=== PATIENT | female | born 1930 | race Caucasian/White ===

== ENCOUNTER → 2017-02-04 | Outpatient (CLI) | payer OTHER ==
[~2017-02-04] VITALS: Ht 152.4 cm; Wt 65.2 kg
[~2017-02-04] MED LIST: ADVAIR 250/501 DISK IH; ADVAIR HFA120 INHALA IH; ALBUTEROL2.5 MG/3 M IH; ASPIR 8181 M1 PO; ASPIR-LOW81 MG PO; ASPIRIN E.C.81 M2 PO; ASPIRIN81 M1; AUGMENTIN875 MG PO; Ambien PO; Aspirin E.C. PO; BLOOD PRESSURE MED; CALCITRATE + D1 EACH PO; CALCIUM CARB1 TABLET PO; CALCIUM CITRAT1 EAC8 PO; CALCIUM CITRAT250 MG PO; CALICUM 500+D1 EACH PO; CALTRATE 6001 TABLET PO; CALTRATE PLUS1 EACH PO; CARDIZEM CD,CA180 MG PO; CARDIZEM CD,CA240 MG PO; CARTIA XT240 MG PO; CATAPRES0.1 MG PO; CEFTIN500 MG PO; CELEBREX200 MG; CENTRUM SILVER1 EAC3 PO; CENTRUM SILVER1 EAC4 PO; CENTRUM SILVER1 EACH PO; CHOLESTYRAMINE P4 GM PO; CICLODAN90 GM TP; CIPRO500 MG PO; CITRACAL + D C1 EACH; CITRACAL200 MG PO; COUMADIN,JANTOVE2 MG PO; COUMADIN,JANTOVE5 MG PO; COUMADIN2 MG PO; COUMADIN3 M1 PO; COUMADIN3 MG PO; COUMADIN4 MG PO; COUMADIN5 MG PO; CULTURELLE CAP1 EACH PO; CYANOCOBALAM1000 MCG PO; CYMBALTA30 MG PO; CYMBALTA60 MG PO; Cardizem CD,Cartia X PO; Coumadin Daily Dose PO; Cymbalta PO; DESYREL100 MG PO; DICYCLOMINE HCL20 MG PO; DIGOX125 MCG PO; DIGOXIN125 MCG PO; DILACOR XR240 MG PO; DILAUDID2 MG PO; DILTIAZEM 24HR240 MG PO; DIOVAN HCT 1601 EAC1 PO; DIOVAN HCT 81 TABLET PO; DUONEB 2.5-0.5 M3 ML IPPB; DURAGESIC1 EAC2 TD; DURAGESIC100 MCG TD; DURAGESIC100 MICROG TD; DURAGESIC50 MCG TD; Duragesic TD; ELIQUIS5 MG PO; FENTANYL1 EAC3 PO; FERROUS SULFAT325 MG PO; FLAGYL500 MG PO; FLEXERIL10 MG PO; FLORASTOR250 MG PO; GABAPENTIN300 MG PO; HEMMOREX-HC25 MG PR; HYDROMORPHONE HC2 MG PO; IRON325 M1 PO; K-DUR20 MEQ PO; K-Dur PO; KLOR-CON 1010 ME1 PO; KLOR-CON M2020 MEQ PO; LANOXIN,DIGI0.125 MG PO; LANOXIN,DIGIT0.25 MG PO; LANOXIN125 MCG PO; LANSOPRAZOLE30 MG PO; LASIX20 MG PO; LASIX40 MG PO; LEVSIN0.125 MG PO; LOPERAMIDE2 MG PO; LORAZEPAM0.5 MG PO; LOSARTAN-HCTZ1 EAC1; LOSARTAN-HCTZ1 EAC1 PO; LOW DOSE ASPIRI81 M2 PO; MAG-OX400 M1 PO; MAGNESIUM250 MG PO; MATZIM LA180 MG PO; METOCLOPRAMIDE10 MG PO; METRONIDAZOLE500 MG PO; MIRALAX, GLYCOL1 PK1 PO; NEURONTIN300 MG PO; NORVASC2.5 MG PO; PANTOPRAZOLE SO40 MG PO; PLAQUENIL200 MG PO; POTASSIUM20 MEQ/11 PO; PRAVACHOL40 MG PO; PREVACID30 MG PO; PROBIOTIC1 EAC2 PO; PROTONIX40 MG PO; PROVENTIL,2.5 MG/0.5 IH; PROVENTIL2.5 MG/3 M IH; Pradaxa PO; QUALAQUIN324 MG PO; QUETIAPINE FUMA25 MG PO; REVATIO20 MG PO; SILDENAFIL20 MG PO; SIMVASTATIN20 MG PO; SPIRIVA1 INHALATI IH; TAZTIA XT240 M1 PO; TRAMADOL HCL50 MG PO; TRAZODONE HCL100 MG PO; TRAZODONE HCL50 MG PO; TYLENOL EXTRA500 MG PO; TYLENOL PM1 CAPLET PO; TYLENOL REGULA325 MG PO; Tums PO; VANCOCIN 250 M250 MG PO; VERELAN 360 MG360 MG PO; VICKS SINEX15 ML BOTH NARES; VITAMIN D-32000 UNI2 PO; VITAMIN D1000 INTUN PO; VITAMIN D1000 UNIT PO; VITAMIN D31000 UNIT PO; WELCHOL625 MG PO; ZOCOR20 MG PO; ZOFRAN4 MG; ZOFRAN4 MG PO; Zocor PO; [UNRECOGNIZED DRUG - OTHER] PO; predniSONE PO
== END | disposition home or self-care (01) ==
LOC: AMB 09:54
DX: K62.5 Hemorrhage of anus and rectum (principal); K64.8 Other hemorrhoids; K57.30 Diverticulosis of large intestine without perforation or abscess without bleeding; K62.89 Other specified diseases of anus and rectum; D64.9 Anemia, unspecified; K58.9 Irritable bowel syndrome, unspecified; G89.29 Other chronic pain; E11.9 Type 2 diabetes mellitus without complications; E78.5 Hyperlipidemia, unspecified; I10 Essential (primary) hypertension; K21.0 Gastro-esophageal reflux disease with esophagitis; G25.81 Restless legs syndrome; M81.0 Age-related osteoporosis without current pathological fracture; Z79.01 Long term (current) use of anticoagulants; Z88.8 Allergy status to other drugs, medicaments and biological substances; Z91.09 Other allergy status, other than to drugs and biological substances
CPT/HCPCS: 88305